=== PATIENT | male | born 1985 | race Caucasian/White ===

== ENCOUNTER → 2020-08-14 | Outpatient (CLI) | payer BC ==
[~2020-08-14] MED LIST: AUGMENTIN 875875 MG PO; BACTRIM DS 8001 TA1 PO; FLONASE ALLERG9.9 ML NAS; KEFLEX500 MG PO; KEFTAB500 MG PO; NORFLEX100 MG PO; PEN-VEE K500 MG PO; PIROXICAN10 MG PO; PREDNISONE10 MG PO; TRAMADOL HCL50 MG PO; ULTRAM50 MG PO; ZOFRAN ODT4 MG SL; ZOFRAN4 MG PO
== END | disposition home or self-care (01) ==
LOC: COVID19 13:34
PROVIDERS: ATTEND Internal Medicine
DX: Z20.828 Contact with and (suspected) exposure to other viral communicable diseases (principal)

== ENCOUNTER → 2020-09-26 | Outpatient (CLI) | payer BC | END | disposition home or self-care (01) | LOC: COVID19 13:16 | PROVIDERS: ATTEND Internal Medicine | DX: Z20.822 Contact with and (suspected) exposure to COVID-19 (principal); R06.02 Shortness of breath ==

== ENCOUNTER 2021-08-09 21:20 | Emergency (ER) | payer BC ==
[~2021-08-09] VITALS: Ht 185.4 cm; Wt 97.5 kg
== END 2021-08-09 21:49 | disposition home or self-care (01) ==
LOC: ED 21:20
DX: S61.412A Laceration without foreign body of left hand, initial encounter (principal); W26.8XXA Contact with other sharp object(s), not elsewhere classified, initial encounter; Y93.89 Activity, other specified; Y92.89 Other specified places as the place of occurrence of the external cause; Y99.8 Other external cause status

== ENCOUNTER → 2021-08-21 | Outpatient (CLI) | payer BC | LOC: WOUNDCARE 01:48 | PROVIDERS: ATTEND Nurse Practitioner Family | DX: S61.402A Unspecified open wound of left hand, initial encounter (principal); Z98.890 Other specified postprocedural states; W26.8XXA Contact with other sharp object(s), not elsewhere classified, initial encounter; Y93.89 Activity, other specified; Y92.89 Other specified places as the place of occurrence of the external cause; Y99.8 Other external cause status ==

== ENCOUNTER 2025-08-05 00:18 | Emergency (ER) | payer OTHER ==
[~2025-08-05] VITALS: Ht 185.4 cm; Wt 99.8 kg
[2025-08-05] MEDS ORDERED: HYDROCODONE-AC1 EAC1 PO ×2 (03:23→03:25)
== END 2025-08-05 03:35 | disposition admitted as inpatient to this hospital (09) ==
LOC: ED 00:18
DX: S52.501A Unspecified fracture of the lower end of right radius, initial encounter for closed fracture (principal); W22.8XXA Striking against or struck by other objects, initial encounter; Y93.89 Activity, other specified; Y92.89 Other specified places as the place of occurrence of the external cause; Y99.8 Other external cause status

== ENCOUNTER → 2025-08-14 | Day surgery (SDC) | payer OTHER ==
[~2025-08-14] VITALS: Ht 185.4 cm; Wt 100.2 kg
[~2025-08-14] MED LIST changes: +ACETAMINOPHEN 100 ML IV ONE; +Bupivacaine Hydrochloride/Ep2 30 ML VIAL ONE; +Dexamethasone Sodium Phospha 4 MG/ML VIAL IV ONE; +HYDROCODONE-AC1 EAC1 PO; +Ketamine Hydrochloride 50 MG/5 ML SYRINGE IV ONE; +Lactated Ringer's Solution 1,000 ML IV ONE; +Lidocaine Hydrochloride 5 ML VIAL IV ONE; +Midazolam Hydrochloride 2 MG/2 ML VIAL IV ONE; +Ondansetron Hydrochloride 4 MG/2 ML VIAL IV ONE; +PROPOFOL 200 MG/20 ML VIAL IV ONE; +Ropivacaine Hydrochloride 5 MG/ML 20 ML AMP IJ ONE; +SEVOFLURANE 250 ML BOT INH ONE
[2025-08-14 12:13] VITALS: BP 141/76
[2025-08-14 12:50] LABS: BUN 13 mg/dl (9-23)
[2025-08-14 14:25] VITALS: BP 106/65
[2025-08-14 14:40] VITALS: BP 127/87
[2025-08-14 14:55] VITALS: BP 133/83
[2025-08-14 15:10] VITALS: BP 130/75
[2025-08-14 15:25] VITALS: BP 128/87
== END | disposition home or self-care (01) ==
LOC: SDC 08-13 14:00
PROVIDERS: ATTEND Orthopaedic Surgery
DX: S52.571A Other intraarticular fracture of lower end of right radius, initial encounter for closed fracture (principal); S52.301A Unspecified fracture of shaft of right radius, initial encounter for closed fracture; G56.01 Carpal tunnel syndrome, right upper limb; X58.XXXA Exposure to other specified factors, initial encounter; Y93.89 Activity, other specified; Y92.89 Other specified places as the place of occurrence of the external cause; Y99.8 Other external cause status

== ENCOUNTER → 2025-08-27 | Outpatient (CLI) | payer OTHER ==
[~2025-08-27] MED LIST changes: -ACETAMINOPHEN 100 ML IV ONE; -Bupivacaine Hydrochloride/Ep2 30 ML VIAL ONE; -Dexamethasone Sodium Phospha 4 MG/ML VIAL IV ONE; -Ketamine Hydrochloride 50 MG/5 ML SYRINGE IV ONE; -Lactated Ringer's Solution 1,000 ML IV ONE; -Lidocaine Hydrochloride 5 ML VIAL IV ONE; -Midazolam Hydrochloride 2 MG/2 ML VIAL IV ONE; -Ondansetron Hydrochloride 4 MG/2 ML VIAL IV ONE; -PROPOFOL 200 MG/20 ML VIAL IV ONE; -Ropivacaine Hydrochloride 5 MG/ML 20 ML AMP IJ ONE; -SEVOFLURANE 250 ML BOT INH ONE
== END | disposition home or self-care (01) ==
LOC: ORTHO 04:56
PROVIDERS: ATTEND Orthopaedic Surgery
DX: S52.571A Other intraarticular fracture of lower end of right radius, initial encounter for closed fracture (principal); R22.31 Localized swelling, mass and lump, right upper limb; M19.031 Primary osteoarthritis, right wrist; M25.731 Osteophyte, right wrist; X58.XXXA Exposure to other specified factors, initial encounter; Y93.89 Activity, other specified; Y92.89 Other specified places as the place of occurrence of the external cause; Y99.8 Other external cause status